=== PATIENT | male | born 1980 | race Caucasian/White ===

== ENCOUNTER 2018-05-13 16:15 | Emergency (ER) | payer OTHER ==
--- NOTE | 2018-05-13 16:22 | PDOC ---
Rapid Medical Evaluation Time Seen by Provider: 05/13/18 16:20 Medical Evaluation: Allergies Allergy/AdvReac Type Severity Reaction Status Date / Time No Known Allergies Allergy Verified 05/07/14 14:44 05/13/18 16:20 Patient had a brief in-person assessment of this patient The patient presents with a chief complaint of: right knee pain. Patient brought in by ambulance after twisting leg 2 days ago. Pertinent physical findings are: NAD even and unlabored breathing right knee +edema I have ordered the following: xray to right knee This patient will proceed to the ED for further evaluation.
[2018-05-13 16:53] VITALS: BP 125/89; PULSE 102; TEMP 99; BMI 35.6
--- NOTE | 2018-05-13 17:05 | PDOC ---
History of Present Illness - General Chief Complaint: Pain, Acute Stated Complaint: RT KNEE INJURY Time Seen by Provider: 05/13/18 16:20 History Source: Patient Exam Limitations: No Limitations - History of Present Illness Initial Comments: 05/13/18 17:21 Patient states was walking 2 days ago, slipped and twisted his right knee. Has progressively become more painful and swollen. Was unable to walk or care for self at home and states was unable to make it to the bathroom. Patient called ambulance today to bring to emergency department for evaluation Occurred: reports: yesterday Severity: reports: moderate Pain Location: reports: lower extremity (right knee) Method of Injury: Yes: fall Associated Symptoms (Fall): denies symptoms Past History - Travel Traveled outside of the country in the last 30 days: No Close contact w/someone who was outside of country & ill: No - Past Medical History Allergies/Adverse Reactions: Allergies Allergy/AdvReac Type Severity Reaction Status Date / Time No Known Allergies Allergy Verified 05/13/18 16:21 Home Medications: Ambulatory Orders Fluphenazine Decanoate [Prolixin Decanoate (Long-Acting Injection) -] 25 mg IJ MONTHLY 05/07/14 Quetiapine Fumarate [Seroquel -] 400 mg PO HS 05/07/14 Quetiapine Fumarate [Seroquel -] 200 mg PO HS #30 tablet 05/18/14 Ibuprofen 400 mg PO Q6H PRN #30 tablet 05/13/18 Anemia: No Asthma: No Cancer: No Cardiac Disorders: No CVA: No COPD: No CHF: No Dementia: No Diabetes: No GI Disorders: No Disorders: No HTN: No Hypercholesterolemia: No Kidney Stones: No Liver Disease: No Psychiatric Problems: Yes Seizures: No Thyroid Disease: No - Reproductive History Testicular Surgery: No - Suicide/Smoking/Psychosocial Hx Smoking History: Current some day smoker Have you smoked in the past 12 months: Yes Number of Cigarettes Smoked Daily: 5 Information on smoking cessation initiated: Yes 'Breaking Loose' booklet given: 05/13/18 Hx Alcohol Use: No Drug/Substance Use Hx: No Substance Use Type: Alcohol, Marijuana Hx Substance Use Treatment: Yes Trauma Specific PMHX - Complaint Specific PMHX Arthritis: No Review of Systems - Review of Systems Able to Perform ROS?: Yes Is the patient limited Turkmen proficient: Yes Constitutional: Yes: See HPI. No: Symptoms Reported Respiratory: No: Symptoms reported Musculoskeletal: Yes: Symptoms Reported, See HPI, Joint Pain, Joint Swelling Integumentary: Yes: Symptoms Reported, See HPI, Bruising All Other Systems: Reviewed and Negative *Physical Exam - Vital Signs Last Vital Signs Temp Pulse Resp BP Pulse Ox 99 F 102 H 16 125/89 97 05/13/18 16:21 05/13/18 16:21 05/13/18 16:21 05/13/18 16:21 05/13/18 16:21 - Physical Exam General Appearance: Yes: Nourished, Appropriately Dressed, Apparent Distress, Disheveled (UNCLEAN), Mild Distress HEENT: positive: MADI, Normal ENT Inspection, TMs Normal, Pharynx Normal Neck: positive: Supple. negative: Tender Gastrointestinal/Abdominal: positive: Soft Musculoskeletal: negative: Normal Inspection, Decreased Range of Motion Extremity: positive: Normal Capillary Refill, Tender, Swelling. negative: Normal Inspection (swelling and mild ballotment to upper knee. 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 Sulaiman wrap / crutches provided. Will Refer to ORTHO for further testing as indicated. *DC/Admit/Observation/Transfer Diagnosis at time of Disposition: Strain of right knee Qualifiers: Encounter type: initial encounter Qualified Code(s): S86.911A - Strain of unspecified muscle(s) and tendon(s) at lower leg level, right leg, initial encounter - Discharge Dispostion Disposition: HOME Condition at time of disposition: Stable Decision to Admit order: No - Referrals Referrals: Bhanu Younger MD [Staff Physician] - Kirby Heck MD [Staff Physician] - - Patient Instructions Printed Discharge Instructions: DI for Knee Sprain Additional Instructions: Rest, ice to area on and off for 15 minutes 4-6 times a day Avoid heavy lifting or exercise until pain and swelling is resolved or until further directed Keep area highly elevated to reduce swelling Use splints/Sulaiman wrap as directed Followup with orthopedist in one to 2 days if not improving, if significantly improved may wait one week for followup with orthopedist May use ibuprofen 2-200 mg tablets every 6 hours as needed for pain - Post Discharge Activity Forms/Work/School Notes: Back to Work
[2018-05-13] MEDS ORDERED: IBUPROFEN 600 MG TABLET (FP) PO ONE ×2 (17:16→17:21)
== END 2018-05-13 17:41 | disposition home or self-care (01) ==
LOC: JERFT 16:15
DX: S86.911A Strain of unspecified muscle(s) and tendon(s) at lower leg level, right leg, initial encounter (principal); X58.XXXA Exposure to other specified factors, initial encounter; Y93.89 Activity, other specified; Y92.9 Unspecified place or not applicable; F17.210 Nicotine dependence, cigarettes, uncomplicated; F99 Mental disorder, not otherwise specified
CPT/HCPCS: 73562-TC-RT-FY; 99281-25

== ENCOUNTER 2019-07-15 11:41 | Emergency (ER) | payer OTHER ==
[2019-07-15 11:47] VITALS: BP 141/90; PULSE 97; TEMP 98; BMI 35.1
--- NOTE | 2019-07-15 13:09 | PDOC ---
History of Present Illness - General Chief Complaint: Pain Stated Complaint: LT FOOT PAIN Time Seen by Provider: 07/15/19 12:36 - History of Present Illness Initial Comments: 07/15/19 13:00 CHIEF COMPLAINT: foot pain HISTORY OF PRESENT ILLNESS: 39 yo M with hx of diabetes and alcoholism presents to fast track with foot pain. Patient reports sudden onset b/l foot pain x 2 days ago that "feels like I'm walking on my ankles." Patient denies any fall, trauma, or injury to his feet or ankles. No recent travel or sick contacts. PAST MEDICAL HISTORY: Denies past medical history FAMILY HISTORY: Denies SOCIAL HISTORY: Denies tobacco, alcohol, illicit drug use. SURGICAL HISTORY: Denies ALLERGIES: No known drug allergies REVIEW OF SYSTEMS General/Constitutional: Denies fever or chills. Denies weakness, weight change. HEENT: Denies change in vision. Denies ear pain or discharge. Denies sore throat. Cardiovascular: Denies chest pain or shortness of breath. Respiratory: Denies cough, wheezing, or hemoptysis. Gastrointestinal: Denies nausea, vomiting, diarrhea or constipation. Denies rectal bleeding. Genitourinary: Denies dysuria, frequency, or change in urination. Musculoskeletal: Bilateral foot pain x 2 days. Skin and breasts: Denies rash or easy bruising. Neurologic: Denies headache, vertigo, loss of consciousness, or loss of sensation. Psychiatric: Denies depression or anxiety. PHYSICAL EXAM General Appearance: Well-appearing, appropriately dressed. No apparent distress , no intoxication. HEENT: EOMI, PERRLA, normal ENT inspection, normal voice, TMs normal, pharynx normal. No conjunctival pallor. No photophobia, scleral icterus. Neck: Supple. Trachea midline. No tenderness, rigidity, carotid bruit, stridor , lymphadenopathy, or thyromegaly. Respiratory/Chest: Lungs CTAB. No shortness of breath, chest tenderness, respiratory distress, accessory muscle use. No crackles, rales, rhonchi, stridor , wheezing, dullness Cardiovascular: RRR. S1, S2. No JVD, murmur, bradycardia, tachycardia. Vascular Pulses: Dorsalis-Pedis (R): 2+, Dorsalis-Pedis (L): 2+ Gastrointestinal/Abdominal: Normal bowel sounds. Abdomen soft, non-distended. No tenderness or rebound tenderness. No organomegaly, pulsatile mass, guarding , hernia, hepatomegaly, splenomegaly. Lymphatic: No adenopathy, tenderness. Musculoskeletal/Extremities: Tenderness to b/l feet and ankle without swelling , ecchymosis, or deformity. Normal inspection. FROM of all extremities, normal capillary refill. Pelvis Stable. No CVA tenderness. No tenderness to extremities, pedal edema, swelling, erythema or deformity. Integumentary: Appropriate color, dry, warm. No cyanosis, erythema, jaundice or rash Neurologic: toolmaker grade three II-XII intact. Fully oriented, alert. Appropriate mood/affect. Motor strength 5/5. No appreciable EOM palsy, facial droop or sensory deficit. Past History - Past Medical History Allergies/Adverse Reactions: Allergies Allergy/AdvReac Type Severity Reaction Status Date / Time No Known Allergies Allergy Verified 07/15/19 11:47 Home Medications: Ambulatory Orders Fluphenazine Decanoate [Prolixin Decanoate (Long-Acting Injection) -] 25 mg IJ MONTHLY 05/07/14 Quetiapine Fumarate [Seroquel -] 400 mg PO HS 05/07/14 Quetiapine Fumarate [Seroquel -] 200 mg PO HS #30 tablet 05/18/14 Ibuprofen 400 mg PO Q6H PRN #30 tablet 05/13/18 Gabapentin 100 mg PO TID #10 capsule 07/15/19 Anemia: No Asthma: No Cancer: No Cardiac Disorders: No CVA: No COPD: No CHF: No Dementia: No Diabetes: No GI Disorders: No Disorders: No HTN: No Hypercholesterolemia: No Kidney Stones: No Liver Disease: No Psychiatric Problems: Yes Seizures: No Thyroid Disease: No - Reproductive History Testicular Surgery: No - Psycho Social/Smoking Cessation Hx Smoking History: Current every day smoker Have you smoked in the past 12 months: Yes Number of Cigarettes Smoked Daily: 10 Information on smoking cessation initiated: No 'Breaking Loose' booklet given: 05/13/18 Hx Alcohol Use: No Drug/Substance Use Hx: No Substance Use Type: Alcohol, Marijuana Hx Substance Use Treatment: Yes *Physical Exam - Vital Signs Last Vital Signs Temp Pulse Resp BP Pulse Ox 98 F 97 H 18 141/90 100 07/15/19 11:44 07/15/19 11:44 07/15/19 11:44 07/15/19 11:44 07/15/19 11:44 ED Treatment Course - RADIOLOGY Radiology Studies Ordered: Category Date Time Status ANKLE & FOOT-LEFT* [RAD] Stat Radiology 07/15/19 12:29 Completed Medical Decision Making - Medical Decision Making 07/15/19 13:09 39 yo M with hx of diabetes presents to fast track with foot pain. -x-ray negative Exam negative. Advised patient to take medication as prescribed and follow up with PCP within the next week. Advised patient of signs and symptoms for return to ED. Patient verbalized understanding and agrees to plan. Discharge - Discharge Information Problems reviewed: Yes Clinical Impression/Diagnosis: Neuropathy Condition: Stable Disposition: HOME - Admission No - Additional Discharge Information Prescriptions: Gabapentin 100 mg PO TID #10 capsule Prescription Drug Monitoring Program (I-STOP) results: I-STOP reviewed and no issues identified - Follow up/Referral Referrals: Juventino Nice MD [Primary Care Provider] - - Patient Discharge Instructions Patient Printed Discharge Instructions: Diabetic Neuropathy Additional Instructions: Please take medications as prescribed. Follow up with your primary care doctor within the next 3-4 days for continued monitoring of your symptoms and for chronic management of your diabetes. If you develop any new or worsening symptoms, please return to the ER. - Post Discharge Activity
[2019-07-15] MEDS ORDERED: GABAPENTIN 100 MG CAPSULE (FP) PO ONE (13:14)
[2019-07-15] MEDS ORDERED: GABAPENTIN 100 MG CAPSULE (FP) ONE (13:21)
== END 2019-07-15 13:31 | disposition home or self-care (01) ==
LOC: JERFT 11:41
DX: E11.42 Type 2 diabetes mellitus with diabetic polyneuropathy (principal); F10.10 Alcohol abuse, uncomplicated; F17.210 Nicotine dependence, cigarettes, uncomplicated
CPT/HCPCS: 73610-TC-LT-FY; 73630-TC-LT; 99281-25

== ENCOUNTER 2024-11-19 08:00 | Emergency (ER) | payer MEDICARE, OTHER ==
[2024-11-19 08:07] VITALS: BP 140/87; PULSE 74; RESP 20; TEMP 98.4; BMI 41.9
[2024-11-19] MEDS ORDERED: ACETAMINOPHEN 500 MG TABLET (FP) ONE (08:54)
[2024-11-19] MEDS: ACETAMINOPHEN 500 MG TABLET (FP) PO ONE (08:56)
== END 2024-11-19 09:04 | disposition home or self-care (01) ==
LOC: JERFT 08:00
DX: M25.572 Pain in left ankle and joints of left foot (principal)
CPT/HCPCS: 73610-TC-LT-FY; 73630-TC-LT; 99283-25

== ENCOUNTER 2024-11-21 12:47 | Emergency (ER) | payer MEDICARE, OTHER ==
[2024-11-21 13:24] VITALS: BP 133/74; PULSE 96; RESP 15; TEMP 98.6; BMI 35.6
[2024-11-21 14:36] LABS: COCAINE, UR NEGATIVE (NEGATIVE); METHADONE, UR NEGATIVE (NEGATIVE); URINE AMPHETAMINES NEGATIVE (NEGATIVE); URINE BARBITURATES NEGATIVE (NEGATIVE); URINE BENZODIAZEPINES NEGATIVE (NEGATIVE)
[2024-11-21 14:37] LABS: OPIATES, URI NEGATIVE (NEGATIVE); PHENCYCLIDINE,URINE NEGATIVE (NEGATIVE)
== END 2024-11-21 17:15 | disposition home or self-care (01) ==
LOC: JER 12:47
DX: Z00.00 Encounter for general adult medical examination without abnormal findings (principal)
CPT/HCPCS: 80307; 99283-25